=== PATIENT | female | born 1970 | race Caucasian/White ===

== ENCOUNTER 2017-03-05 22:03 | Emergency (ER) | payer MEDICAID ==
[2017-03-05] MEDS ORDERED: Aspirin Low Dose CHEW TAB* 81 MG PO ONE (23:57)
--- NOTE | 2017-03-06 00:26 | ED ---
Dominic Palomo Benjamin, scribed for Cam Pereira MD on 03/05/17 at 2358 . HPI Chest Pain - HPI Summary HPI Summary: 46yo female c/o SOB since morning andpain in right ribs and right back since 1630 today. States that the pain is getting worse, and is aggravated upon deep breath and exertion. Pt had cold symptoms in the past few days, including cough with phlegm, stuffy nose. Denies fever. PMHx includes murmurs and HTN. FHx of DM , [place], and HTN - History of Current Complaint Chief Complaint: EDChestWallPain Time Seen by Provider: 03/05/17 23:48 Hx Obtained From: Patient Onset/Duration: Started Hours Ago - this morning, Still Present Timing: Constant Initial Severity: Moderate Current Severity: Moderate Pain Intensity: 6 Pain Scale Used: 0-10 Numeric Chest Pain Location: Right Anterior Chest Pain Radiates: Yes Chest Pain Radiates To:: Back - right back Character: Cough, Productive, Dyspnea at Exertion Aggravating Factor(s): Exertion, Deep Breaths - Allergy/Home Medications Allergies/Adverse Reactions: Allergies Allergy/AdvReac Type Severity Reaction Status Date / Time Iodinated Contrast Media Allergy Severe Hives Verified 03/05/17 14:22 [CONTRAST DYE] Sulfa Drugs Allergy Severe hives, sob Verified 03/05/17 14:22 Clarithromycin [From Biaxin] Allergy Intermediate Itching Verified 03/05/17 14: 22 Shellfish Allergy Allergy Unknown Hives Verified 03/05/17 14:22 Latex Allergy Rash Verified 03/05/17 14:22 NSAIDs Allergy STOMACH Verified 03/05/17 14:22 PAIN Bee Stings Allergy Difficulty Uncoded 07/15/16 18:41 Breathing ENVIRONMENTAL/SEASONAL Allergy STUFFY Uncoded 07/15/16 18:41 ALLERGIES PMH/Surg Hx/FS Hx/Imm Hx Endocrine/Hematology History: Reports: Hx Thyroid Disease - multiple thyroid nodules Cardiovascular History: Reports: Hx Hypertension - Forgets to take her meds often, Hx Valvular Heart Disease - ? STATES RELATED TO HEART MURMUR-, Other Cardiovascular Problems/Disorders - heart murmur Comment Only: Hx Pacemaker/ICD - DORSAL COLUMN STIMULATOR 2012 Respiratory History: Reports: Hx Asthma, Other Respiratory Problems/Disorders - hx pleursy and has respiratory infection today per patient it is a virus GI History: Reports: Hx Gastroesophageal Reflux Disease - ?, Other GI Disorders - Obesity History: Reports: Other Problems/Disorders - HX OF BLADDER INFECTIONS- HAS HAD 2 PROCEDURES TO STRETCH URETHRA Musculoskeletal History: Reports: Hx Arthritis - Psoriatic Arthritis, Hx Rheumatoid Arthritis, Hx Back Problems, Other Musculoskeletal History - HX OF RUFINA IN RIGHT FEMUR Sensory History: Reports: Hx Contacts or Glasses - GLASSES Denies: Hx Hearing Aid Opthamlomology History: Reports: Hx Contacts or Glasses - GLASSES Neurological History: Reports: Hx Migraine Psychiatric History: Reports: Hx Depression - ON MEDS Denies: Hx Panic Disorder - Cancer History Hx Chemotherapy: No Hx Radiation Therapy: No - Surgical History Surgery Procedure, Year, and Place: Dorsal Column Stimulator. cervical fusion. femur rodding Hx Anesthesia Reactions: No Infectious Disease History: Denies: Hx Clostridium Difficile, Hx Hepatitis, Hx Human Immunodeficiency Virus (HIV), Hx Shingles, Hx Tuberculosis, History Other Infectious Disease, Traveled Outside the [place] in Last 30 Days - Family History Known Family History: Positive: Unknown, Hypertension, Diabetes - Social History Occupation: Employed Full-time Lives: With Family Alcohol Use: None Substance Use Type: Reports: None Substance Use Comment - Amount & Last Used: oxycodone, oxycontin Smoking Status (MU): Never Smoked Tobacco Have You Smoked in the Last Year: No Review of Systems Constitutional: Negative Negative: Fever Eyes: Negative ENT: Negative Positive: Chest Pain Positive: Shortness Of Breath, Cough Gastrointestinal: Negative Genitourinary: Negative Musculoskeletal: Negative Skin: Negative Neurological: Negative Psychological: Normal All Other Systems Reviewed And Are Negative: Yes Physical Exam Triage Information Reviewed: Yes Vital Signs On Initial Exam: Initial Vitals Temp Pulse Resp BP Pulse Ox 96.1 F 107 18 141/88 100 03/05/17 22:05 03/05/17 22:05 03/05/17 22:05 03/05/17 22:05 03/05/17 22:05 Vital Signs Reviewed: Yes Appearance: Positive: Well-Appearing, No Pain Distress Skin: Positive: Warm Head/Face: Positive: Normal Head/Face Inspection Eyes: Positive: SWETHA ENT: Positive: Hearing grossly normal Neck: Positive: Supple Respiratory/Lung Sounds: Positive: Clear to Auscultation, Breath Sounds Present Cardiovascular: Positive: RRR Abdomen Description: Positive: Nontender, Soft Bowel Sounds: Positive: Present Musculoskeletal: Positive: Strength/ROM Intact Neurological: Positive: Alert, Oriented to Person Place, Time Psychiatric: Positive: Affect/Mood Appropriate Diagnostics - Vital Signs Vital Signs Temp Pulse Resp BP Pulse Ox 03/05/17 22:05 96.1 F 107 18 141/88 100 - Laboratory Result Diagrams: 03/06/17 00:40 03/06/17 00:40 Lab Statement: Any lab studies that have been ordered have been reviewed, and results considered in the medical decision making process. - EKG 0028. Cardiac Rate: NL - 80bpm EKG Rhythm: Sinus Rhythm ST Segment: Normal Ectopy: None Re-Evaluation - Re-Evaluation First Eval Change: Improved Chest Pain Course/Dx - Diagnoses Provider Diagnoses: Pleurisy Discharge - Discharge Plan Condition: Stable Disposition: HOME Patient Education Materials: Pleurisy (ED) Referrals: Marino Cheung MD [Primary Care Provider] - The documentation as recorded by the Dominic rios Benjamin accurately reflects the service I personally performed and the decisions made by me, Cam Pereira MD.
[2017-03-06 00:49] LABS: Hematocrit 35 % (35-47); Hemoglobin 11.3 g/dl (12.0-16.0); Mean Corpuscular HGB Conc 32 g/dl (31-36); Mean Corpuscular Hemoglobin 24 pg (27-31); Mean Platelet Volume 9 um3 (7.4-10.4); Red Blood Count 4.68 10^6/ul (4.0-5.4); Red Cell Distribution Width 17 % (10.5-15); White Blood Count 8.6 10^3/ul (3.5-10.8)
[2017-03-06 00:53] LABS: Comments Flag Yes; Mean Corpuscular Volume 74 fL (80-97)
[2017-03-06 01:06] LABS: Albumin 3.9 g/dL (3.2-5.2); EGFR African American 162.6 (>60); EGFR Non-African American 126.4 (>60); Globulin 3.2 g/dL (2-4); Potassium 3.6 mmol/L (3.5-5.0); Total Bilirubin 0.4 mg/dL (0.2-1.0); Total Protein 7.1 g/dL (6.4-8.9)
[2017-03-06] MEDS ORDERED: Ketorolac INJ* 30 MG/ML 1 ML VIAL IV PUSH ONE (01:13)
[2017-03-06 03:03] VITALS: BP 116/73
--- NOTE | 2017-03-06 07:38 | RAD ---
INDICATION: Chest pain COMPARISON: Chest x-ray dated November 15, 2015 TECHNIQUE: PA and lateral views of the chest were obtained. FINDINGS: Stable postoperative findings include a plate and screw fixator overlying the lower cervical spine. At the midline mediastinum there is what appears to be an intrathecal neurostimulator. The heart and mediastinum are normal in size and contour. The lungs are grossly clear. There is no evidence of large pleural effusion. Visualized bones are normal for the patient's age. There is no radiographic evidence of free air beneath the diaphragm IMPRESSION: No radiographic evidence of acute cardiopulmonary disease.
== END 2017-03-06 02:00 | disposition home or self-care (01) ==
LOC: ED 22:03
DX: R09.1 Pleurisy (principal); R05 Cough; M54.9 Dorsalgia, unspecified; Z86.79 Personal history of other diseases of the circulatory system
CPT/HCPCS: 36415; 71020; 80053; 83605; 84484; 85025; 85379; 93005; 96374; 99283; A9270-GY

== ENCOUNTER 2017-04-23 10:32 | Observation (INO) | payer OTHER ==
[~2017-04-23 10:32] MED LIST: Buffered Lidocaine 0.9% SYRIN* 5 ML/SYR SYRINGE INTRADERM ONE; Buffered Lidocaine 0.9% SYRIN* 5 ML/SYR SYRINGE ONE
[2017-04-23] MEDS ORDERED: fentaNYL* 50 MCG/ML 2 ML VIAL (100 MCG VIAL) ONE ×4 (11:52→17:01)
[2017-04-23] MEDS ORDERED: Midazolam* 1 MG/ML 2 ML VIAL (2 MG) ONE ×2 (11:53→13:35)
[2017-04-23] MEDS ORDERED: Cisatracurium* 2 MG/ML MDV 5 ML ONE (13:17)
[2017-04-23] MEDS ORDERED: Dexamethasone IV* 4 MG/ML 1 ML (4 MG) ONE (13:43)
[2017-04-23] MEDS ORDERED: Lidocaine 2% PF * 5 ML VIAL ONE (13:43)
[2017-04-23] MEDS ORDERED: Ondansetron INJ* 2 MG/ML VIAL ONE (13:43)
[2017-04-23] MEDS ORDERED: Propofol* 10 MG/ML 20 ML BTL IV PUSH ONE (13:43)
[2017-04-23] MEDS ORDERED: Succinylcholine* 20 MG/ML 10 ML VIAL ONE (13:43)
[2017-04-23] MEDS ORDERED: Acetaminophen TAB* 325 MG PO PRN (14:09)
[2017-04-23] MEDS ORDERED: Metoclopramide IV* 5 MG/ML 2 ML VIAL IV PRN (14:09)
[2017-04-23] MEDS ORDERED: Scopolamine 1.5 mg* PATCH TRANSDERM PRN (14:09)
[2017-04-23] MEDS ORDERED: Sevoflurane* 1 BTL ONE (14:18)
[2017-04-23] MEDS ORDERED: Scopolamine 1.5 mg* PATCH ONE (15:47)
[2017-04-23] MEDS ORDERED: HYDROmorphone* 1 MG/ML 1 ML SYR ONE ×2 (15:47→17:01)
[2017-04-23] MEDS ORDERED: Metoclopramide IV* 5 MG/ML 2 ML VIAL ONE (15:48)
[2017-04-23] MEDS: HYDROmorphone* 1 MG/ML 1 ML SYR IV PRN ×5 (15:51→16:44)
[2017-04-23] MEDS: fentaNYL* 50 MCG/ML 2 ML VIAL (100 MCG VIAL) IV PRN ×5 (16:05→17:02)
[2017-04-23] MEDS ORDERED: HYDROmorphone* 1 MG/ML 1 ML SYR IV SLOW PU PRN (18:04)
[2017-04-23] MEDS ORDERED: Albuterol HFA INHALER* 8 gm MDI INH PRN (18:06)
[2017-04-23] MEDS ORDERED: Albuterol 2.5 MG/3 ML NEB.SOL* (0.083%) INH PRN (18:06)
[2017-04-23] MEDS ORDERED: Cyclobenzaprine TAB* 10 MG PO PRN (18:06)
[2017-04-23] MEDS ORDERED: oxyCODONE TAB* 5 MG TAB PO PRN (18:06)
[2017-04-23] MEDS ORDERED: Acetaminophen ADULT LIQ* 650 MG/20.3 ML UDC PO PRN (19:05)
[2017-04-23] MEDS ORDERED: Ondansetron ODT TAB* 4 MG PO PRN (19:06)
[2017-04-23] MEDS ORDERED: oxyCODONE ORAL.SOLN* 5 MG/5 ML UDC PO PRN (19:06)
[2017-04-23] MEDS ORDERED: Ondansetron INJ* 2 MG/ML VIAL IM PRN (19:07)
[2017-04-23] MEDS ORDERED: Ondansetron INJ* 2 MG/ML VIAL IV PRN (19:07)
[2017-04-23] MEDS ORDERED: EPINEPHrine AMP 1 MG/ML IM PRN (19:13)
[2017-04-23] MEDS ORDERED: NAPROXEN 220 MG PO PRN (19:14)
[2017-04-23] MEDS ORDERED: Diclofenac 1.3% PATCH (NF) 5 PATCHS TRANSDERM PRN (19:14)
[2017-04-23] MEDS ORDERED: Diclofenac 1% GEL (NF) 100 GM TUBE TOPICAL PRN (19:16)
[2017-04-23] MEDS: oxyCODONE ORAL.SOLN* 5 MG/5 ML UDC PO PRN ×2 (19:27→23:38)
[2017-04-23] MEDS: Gabapentin CAP(*) 300 MG PO SCH (20:42)
[2017-04-23] MEDS: oxyCODONE SR TAB(*) 10 MG TAB.SR PO SCH (20:43)
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
[2017-04-23] MEDS ORDERED: Mometasone 220 MCG MDI INH SCH (21:00)
[2017-04-23] MEDS ORDERED: Mometasone/Formoter 200/5 MDI INH SCH (21:00)
[2017-04-24] MEDS: oxyCODONE ORAL.SOLN* 5 MG/5 ML UDC PO PRN ×2 (04:15→08:39)
--- NOTE | 2017-04-24 06:44 | OP ---
DATE OF OPERATION: 04/23/17 - ROOM #351 DATE OF : 68. SURGEON: Milton Mosley MD. STATION SUPERINTENDENT: Dr. Arun Molina. ANESTHESIOLOGIST: Carol Reyna MD ANESTHESIA: General PRE-OP DIAGNOSES: Hyperthyroidism and toxic multinodular goiter. POST-OP DIAGNOSES: Hyperthyroidism and toxic multinodular goiter. OPERATIVE PROCEDURE: Right thyroid lobectomy. ESTIMATED BLOOD LOSS: Less than 30 mL. SPECIMENS: Right thyroid lobe to pathology. INDICATION: This is a 46-year-old woman who has had longstanding subclinical hyperthyroidism. Radioactive iodine uptake study showed multinodular goiter with what appeared to be multiple hyperfunctioning nodules in the right lobe. The decision was made following consultation with her interpretative dancer to perform a right thyroid lobectomy in hopes of rendering her euthyroid. DESCRIPTION OF PROCEDURE: On 04/23/17, the patient was brought to the operating room, general anesthesia was induced. Initial attempts to place a #7 NIM's endotracheal tube were unsuccessful. A #7 non-NIM's endotracheal tube was then placed. Attempts were made to change to a NIM's tube over a tube changer, but those were also unsuccessful and so a size 6 NIM's endotracheal tube was ultimately selected and was used for successful intubation. Once intubated, the patient was positioned. Care was taken to assess a comfortable position for her before she was sedated because she has history of back problems. She was placed with just gentle neck extension for the procedure. She was prepped with Betadine and draped in sterile fashion. A time -out was performed approximately 8 cc of 1.5% lidocaine with 1:200,000 epinephrine was infiltrated into the anterior neck, skin and subcutaneous tissue. Once adequate time had been allotted for vasoconstriction, the procedure was begun. A #15 blade was used to make a 6-cm incision low in the anterior neck. Dissection was undertaken through the subcutaneous fat and through the platysma utilizing a Bovie cautery. Superior and inferior subplatysmal flaps were raised to facilitate exposure to the strap muscles. Strap muscles were then divided along the median raphe and the strap muscles were reflected off the right side of the thyroid to expose the right thyroid lobe. There was some scarring with some adhesion of strap musculature to the anterior and lateral portions of the right lobe of the thyroid presumably from the patient's prior right-sided approach for ACDF surgery several years ago. Attention was turned towards the superior pole. The superior pole vascular pedicle was identified. Multiple vessels were ligated with hemoclips and then divided with the LigaSure device. With the superior pole freed, attention was then turned inferiorly. The inferior pole vascular pedicle was identified and ligated close to the gland as was possible. In the context of this, 1 parathyroid was seen and preserved with its blood supply intact. Dissection was then undertaken in the tracheoesophageal groove. The recurrent laryngeal nerve was found without difficulty. Its identify was confirmed both visually and with stimulation on the NIM's device. This was used as a guide for further superior dissection. The gland was then reflected laterally. The middle thyroid vein was ligated with hemoclips and divided. Hemoclips were used from [id number] to ligate small vascular feeders as the gland was reflected medially. With the gland mobilized and the nerve traced to its insertion point in the larynx, the isthmus was then divided with the LigaSure device. At this point, the specimen was removed, the wound was inspected. It was irrigated with saline. Multiple Valsalvas were performed to assure good hemostasis. A small piece of Surgicel was then placed into the operative bed. The strap muscles were reapproximated with 4-0 Polysorb. Platysma was also reapproximated with 4-0 Polysorb and skin was closed with 5-0 nylon. Final layer of Steri-Strips and Mastisol was placed. The patient was then extubated without difficulty and delivered to the PACU in stable condition. [id number]/[facility] #: [id number] NEERAJ
[2017-04-24] MEDS ORDERED: Omeprazole CAP* 20 MG PO SCH (07:30)
[2017-04-24 08:02] VITALS: BP 131/52
[2017-04-24] MEDS: Gabapentin CAP(*) 300 MG PO SCH (08:38)
[2017-04-24] MEDS: oxyCODONE SR TAB(*) 10 MG TAB.SR PO SCH (08:41)
[2017-04-24] MEDS ORDERED: Valsartan TAB* 40 MG PO SCH (09:00)
[2017-04-24] MEDS ORDERED: Montelukast Sodium TAB* 10 MG PO SCH (09:00)
[2017-04-24] MEDS ORDERED: DULoxetine DR CAP* 30 MG CAP.DR PO SCH (09:00)
--- NOTE | 2017-04-24 11:05 | DS ---
CC: Dr. Cheung; Dr. Mosley; Dr. Noe * DATE OF ADMISSION: 04/23/2017. DATE OF DISCHARGE: 04/24/2017. PRIMARY CARE PHYSICIAN: Dr. Cheung. ENT: Dr. Mosley. SALES SUPPORT ADMINISTRATOR: Dr. Noe. PRIMARY DIAGNOSIS: Hyperthyroidism and toxic multinodular goiter, status post right thyroid lobectomy, 04/23/2017. SECONDARY DIAGNOSES: 1. Psoriatic arthritis. 2. Chronic pain. 3. Hypertension. 4. Asthma. 5. Migraines. 6. Obesity. 7. Suspected sleep apnea. MEDICATIONS ON DISCHARGE: Unchanged from admission, include: 1. Oxycodone 10 mg every 4 hours as needed for pain. 2. Oxycodone SR 40 mg twice daily, no refills were given. 3. Diovan 120 mg in the morning. 4. Omeprazole one tab in the morning. 5. Naproxen one tab twice daily as needed. 6. Singulair 10 mg in the morning. 7. Gabapentin 300 mg three times a day. 8. Fluticasone 250 mcg one puff twice daily. 9. Epinephrine 0.3 mg IM as needed for anaphylaxis. 10. Cymbalta 60 mg daily. 11. Flector apply topically twice daily as needed. 12. Diclofenac 1% gel one application topically 4 times a day as needed to the area of pain. 13. Flexeril 10 mg three times a day as needed. 14. Albuterol HFA two puffs inhaled 4 times a day as needed for shortness of breath or wheeze. 15. Albuterol nebulizer four times a day as needed for shortness of breath or wheeze. HISTORY OF PRESENT ILLNESS AND HOSPITAL COURSE: This is a 46-year-old female with a history of hyperthyroidism and toxic multinodular goiter who underwent a right thyroid lobectomy with Dr. Mosley on 04/23/2017. Status post procedure and in the setting of her chronic pain, her postoperative pain was difficult to control and the Hospitalist Service was consulted for admission. There was concern about sending the patient home with increased pain medications for control given her obesity and some concern for obstructive sleep apnea, although this is undiagnosed. She was admitted to the hospital, continued on her home medications, as well as her home pain regimen with breakthrough Dilaudid. However, after admission to the hospital, she required zero doses of breakthrough Dilaudid. When seen in the morning after the surgery, she felt her pain was back to baseline, well controlled and she felt comfortable leaving the hospital without changes to her home medications. There were no complications of this patient's hospital stay. AT FOLLOW-UP, PLEASE: 1. Please evaluate for continued pain control. 2. Please evaluate for incisional site integrity. 3. Other labs and follow-up as indicated status post procedure as directed by ENT. REASON TO RETURN TO THE HOSPITAL: Including, but not limited to recurrent or worsening symptoms including worsening pain, redness, erythema around the surgical site, fevers, nausea, vomiting, lightheadedness, loss of consciousness , chest pain, shortness of breath, inability to obtain or tolerate medications were discussed with the patient. She acknowledged understanding. Greater than 30 minutes were spent in the discharge of this patient, greater than half was spent [id number] with the patient. [id number]/[facility] #: [id number] MTDD
[2017-04-26] MEDS ORDERED: Scopolomine PATCH Remove* 1 NOTE MISC PATCH OFF ONE (15:00)
== END 2017-04-24 12:20 | disposition home or self-care (01) ==
LOC: OR 10:32 → SSU 18:05
PROVIDERS: ADMIT Internal Medicine; ATTEND Internal Medicine
DX: E05.20 Thyrotoxicosis with toxic multinodular goiter without thyrotoxic crisis or storm (principal); L40.50 Arthropathic psoriasis, unspecified; G89.29 Other chronic pain; I10 Essential (primary) hypertension; J45.909 Unspecified asthma, uncomplicated; G43.909 Migraine, unspecified, not intractable, without status migrainosus; E66.9 Obesity, unspecified; Z79.899 Other long term (current) drug therapy; F41.8 Other specified anxiety disorders; K21.9 Gastro-esophageal reflux disease without esophagitis
CPT/HCPCS: 81025; 88307; A9270-GY; G0378; J0171; J0330; J1100; J1170; J2250; J2405; J2704; J2765; J3010

== ENCOUNTER 2017-10-30 09:12 | Day surgery (SDC) | payer OTHER ==
[~2017-10-30 09:12] MED LIST changes: +Famotidine IV* 10 MG/ML 2 ML (20 mg) IV ONE; +Famotidine IV* 10 MG/ML 2 ML (20 mg) ONE; +Naloxone* 0.4 MG/ML 1 ML VIAL IV PRN; +Ondansetron INJ* 2 MG/ML VIAL IV PRN; +fentaNYL* 50 MCG/ML 2 ML VIAL (100 MCG VIAL) IV PRN; +oxyCODONE/Acetamin 5/325 MG* TAB PO PRN
[2017-10-30] MEDS ORDERED: ceFAZolin 2 GM PREMIX (*) 2 GM/50 ML BAG IVPB ONE (09:29)
[2017-10-30] MEDS ORDERED: Midazolam* 1 MG/ML 2 ML VIAL (2 MG) ONE (09:53)
[2017-10-30] MEDS ORDERED: Lidocaine 2% PF * 5 ML VIAL ONE (09:53)
[2017-10-30] MEDS ORDERED: KETAMINE HCL* 50 MG/ML 10 ML VIAL ONE (09:53)
[2017-10-30] MEDS ORDERED: fentaNYL* 50 MCG/ML 2 ML VIAL (100 MCG VIAL) ONE (09:53)
[2017-10-30] MEDS ORDERED: Dexamethasone IV* 4 MG/ML 1 ML (4 MG) ONE (09:53)
[2017-10-30] MEDS ORDERED: Propofol* 10 MG/ML 20 ML BTL IV PUSH ONE (09:53)
[2017-10-30] MEDS ORDERED: Ondansetron INJ* 2 MG/ML VIAL ONE (09:53)
[2017-10-30] MEDS ORDERED: Bupivacaine 0.25% SDV* 30 ML ONE (10:25)
[2017-10-30] MEDS ORDERED: oxyCODONE/Acetamin 5/325 MG* TAB ONE (13:52)
[2017-10-30 14:44] VITALS: BP 124/52
--- NOTE | 2017-10-31 14:59 | RAD ---
INDICATION: Osteoarthritis COMPARISONS: November 11, 2016 TECHNIQUE: Fluoroscopy was provided for a surgical procedure. Total fluoroscopy time is: 21 seconds FINDINGS: Spot images demonstrate needles within the scaphoid-trapezium and first CMC joints. IMPRESSION: FLUOROSCOPY WAS PROVIDED FOR A SURGICAL PROCEDURE CPT II Codes: 6045F
== END 2017-10-30 14:45 | disposition home or self-care (01) ==
LOC: OREAST 09:12
PROVIDERS: ATTEND Plastic Surgery
DX: M18.12 Unilateral primary osteoarthritis of first carpometacarpal joint, left hand (principal); J45.909 Unspecified asthma, uncomplicated; F41.8 Other specified anxiety disorders; L40.50 Arthropathic psoriasis, unspecified; I10 Essential (primary) hypertension
CPT/HCPCS: 76000; 81025; 88304; 88311; A9270-GY; J0690; J1100; J2250; J2405; J2704; J3010

== ENCOUNTER 2017-11-04 20:02 | Emergency (ER) | payer OTHER ==
[2017-11-04 20:28] VITALS: BP 123/71
--- NOTE | 2017-11-04 20:36 | UC ---
Skin Complaint HPI - History of Current Complaint Chief Complaint: UCUpperExtremity Time Seen by Provider: 11/04/17 20:36 Stated Complaint: HAND COMPLAINT Hx Last Menstrual Period: 10/30/16 Pain Intensity: 5 - Allergy/Home Medications Allergies/Adverse Reactions: Allergies Allergy/AdvReac Type Severity Reaction Status Date / Time MS Iodinated Contrast Media Allergy Severe Hives Verified 11/04/17 20:19 [CONTRAST DYE] MS Sulfa Drugs [Sulfa Drugs] Allergy Severe hives, sob Verified 11/04/17 20:19 MS Clarithromycin Allergy Intermediate Itching Verified 11/04/17 20:19 [From Biaxin] MS NSAIDs [NSAIDs] Allergy Intermediate STOMACH Verified 11/04/17 20:19 PAIN MS Latex [Latex] Allergy Mild Rash Verified 11/04/17 20:19 MS Shellfish Allergy Allergy Mild Hives Verified 11/04/17 20:19 [Shellfish Allergy] ENVIRONMENTAL/SEASONAL Allergy Intermediate STUFFY Uncoded 11/04/17 20:19 ALLERGIES Bee Stings Allergy Mild Difficulty Uncoded 11/04/17 20:19 Breathing PMH/Surg Hx/FS Hx/Imm Hx - Surgical History Surgical History: Yes Surgery Procedure, Year, and Place: BILATERAL EYE MUSCULE CORRECTION- 1969 AND 2000- [facility] [place]. SPINAL FUSION L5-S1- 2000- [place]. CERVICAL FUSION C2-C3 (FROM BONE SPUR) [facility] [place]. REMOVAL OF SEWING NEEDLE RIGHT INDEX FINGER- [facility] [place]. DORSAL COLUMN STIMULATOR- 2012- [facility] [place]. 04/2017 PARTIAL THYROIDECTOMY [facility] - Family History Known Family History: Positive: Unknown, Hypertension, Diabetes - Social History Alcohol Use: None Substance Use Type: None Substance Use Comment - Amount & Last Used: oxycodone, oxycontin Smoking Status (MU): Never Smoked Tobacco Have You Smoked in the Last Year: No - Immunization History Most Recent Tetanus Shot: about 5 years ago Physical Exam Vital Signs: Initial Vital Signs Temp 96.9 F 11/04/17 20:21 Pulse 113 11/04/17 20:21 Resp 18 11/04/17 20:21 BP 123/71 11/04/17 20:21 Pulse Ox 97 11/04/17 20:21 Discharge - Discharge Plan Referrals: Marino Cheung MD [Primary Care Provider] -
[2017-11-04] MEDS ORDERED: Cephalexin CAP* 500 MG PO ONE (21:21)
--- NOTE | 2017-11-04 21:32 | UC ---
Skin Complaint HPI - HPI Summary HPI Summary: PT UNDERWENT LEFT WRIST ARTHOPLASTY 10/30/[address] HOOVER. ABOUT 2 HRS LOGGER ALL ROUND WHILE PT WAS WALKING THROUGH THE MALL SHE SUDDENLY DEVELOPED CHILLS AND PROFUSE SWEATS. STATES ONE OF HER SURGICAL INCISIONS LOOKS MORE RED THAN BEFORE AND IS SWOLLEN AND MORE PAINFUL. NO DRAINAGE. DENIES SOB. - History of Current Complaint Chief Complaint: UCUpperExtremity Time Seen by Provider: 11/04/17 20:36 Stated Complaint: HAND COMPLAINT Hx Obtained From: Patient Hx Last Menstrual Period: 10/30/16 Onset/Duration: Sudden Onset, Lasting Hours, Still Present Timing: Constant Onset Severity: Moderate Current Severity: Moderate Pain Intensity: 5 Pain Scale Used: 0-10 Numeric Location: Hand (Left) Character: Swelling, Pain, Redness Aggravating Factor(s): Touch Alleviating Factor(s): Nothing Associated Signs & Symptoms: Positive: Chills, Tenderness, Joint Swelling - Allergy/Home Medications Allergies/Adverse Reactions: Allergies Allergy/AdvReac Type Severity Reaction Status Date / Time clarithromycin Allergy Itching Verified 11/04/17 21:13 Iodinated Contrast- Oral and Allergy Hives Verified 11/04/17 21:13 IV Dye latex Allergy Rash Verified 11/04/17 21:13 NSAIDS (Non-Steroidal Allergy See Comment Verified 11/04/17 21:13 Anti-Inflamma shellfish derived Allergy Hives Verified 11/04/17 21:13 Sulfa (Sulfonamide Allergy Hives/Diff. Verified 11/04/17 21:13 Antibiotics) Breathing/I tching ENVIRONMENTAL/SEASONAL Allergy Intermediate STUFFY Uncoded 11/04/17 20:19 ALLERGIES Bee Sting Allergy Difficulty Uncoded 11/04/17 21:13 Breathing Review of Systems Constitutional: Chills, Other - SWEATS Skin: Other - INCISION SITE ERYTHEMA Respiratory: Negative Cardiovascular: Negative Gastrointestinal: Negative Musculoskeletal: Arthralgia, Decreased ROM, Edema All Other Systems Reviewed And Are Negative: Yes PMH/Surg Hx/FS Hx/Imm Hx Endocrine History: Hypothyroidism Cardiovascular History: Hypertension Respiratory History: Asthma - Surgical History Surgical History: Yes Surgery Procedure, Year, and Place: BILATERAL EYE MUSCULE CORRECTION- 1969 AND 2000- [facility] – [place]. SPINAL FUSION L5-S1- 2000- [facility]. CERVICAL FUSION C2-C3 (FROM BONE SPUR) [facility] [place]. REMOVAL OF SEWING NEEDLE RIGHT INDEX FINGER- [facility] [place]. DORSAL COLUMN STIMULATOR- 2012- [facility] [place]. 04/2017 PARTIAL THYROIDECTOMY [facility] - Family History Known Family History: Positive: Hypertension, Diabetes - Social History Alcohol Use: None Substance Use Type: None Substance Use Comment - Amount & Last Used: oxycodone, oxycontin Smoking Status (MU): Never Smoked Tobacco Have You Smoked in the Last Year: No - Immunization History Most Recent Tetanus Shot: about 5 years ago Physical Exam Triage Information Reviewed: Yes Appearance: Well-Appearing, No Pain Distress, Well-Nourished Vital Signs: Initial Vital Signs Temp 96.9 F 11/04/17 20:21 Pulse 113 11/04/17 20:21 Resp 18 11/04/17 20:21 BP 123/71 11/04/17 20:21 Pulse Ox 97 11/04/17 20:21 Vital Signs Reviewed: Yes Eyes: Positive: Conjunctiva Clear ENT: Positive: Hearing grossly normal Neck: Positive: Supple Respiratory: Positive: No respiratory distress, No accessory muscle use Cardiovascular: Positive: Pulses Normal Abdomen Description: Positive: Soft Musculoskeletal: Positive: ROM Limited @ - LEFT WRIST, Edema @ - LEFT WRIST AND THENAR ASPECT OF LEFT HAND Neurological: Positive: Alert Psychological: Positive: Age Appropriate Behavior Skin: Positive: Other - INCISION SITE LEFT THUMB INTACT WITH SOME SURROUNDING ERYTHEMA AND WARMTH. TTP. NO DRAINAGE. Course/Dx - Diagnoses Provider Diagnoses: SURGICAL SITE INFECTION Discharge - Discharge Plan Condition: Stable Disposition: HOME Prescriptions: Cephalexin CAP* [Keflex 500 CAP*] 1,000 mg PO BID #18 cap Patient Education Materials: Surgical Site Infections (ED) Referrals: Marino Cheung MD [Primary Care Provider] - If Needed Additional Instructions: TAKE THE KEFLEX TWICE DAILY TO COVER FOR INFECTION. CHANGE BANDAGE DAILY AND NEEDED IF IT BECOMES SOILED OR WET. SEEK FOLLOW-UP IF YOU DEVELOP FURTHER SPREADING REDNESS OF THE SKIN, PURULENT DRAINAGE, FEVER, INCREASED PAIN OR ANY OTHER CONCERNING SYMPTOMS. KEEP YOUR APPT WITH DR. HOOVER NEXT FRIDAY.
== END 2017-11-04 21:30 | disposition home or self-care (01) ==
LOC: UCEAST 20:02
DX: T81.4XXA Infection following a procedure, initial encounter (principal); B99.9 Unspecified infectious disease; Z96.632 Presence of left artificial wrist joint; I10 Essential (primary) hypertension
CPT/HCPCS: 99212; A9270-GY; G0463

== ENCOUNTER 2019-09-03 17:44 | Emergency (ER) | payer OTHER ==
--- OUTSIDE RECORDS SUMMARY | 2019-09-03 17:49 | XMS REPORT | Continuity of Care Document ---
:1970 External Reference #:[id number] Author Name Marino Cheung MD Address [address] [place] [address] Problems Active Problems Provider Date Morbid obesity Onset: 08/28/2018 Hoarse Onset: 08/31/2017 Social History Type Date Description Comments Sex Unknown Allergies, Adverse Reactions, Alerts Active Allergies Reaction Severity Comments Date Biaxin rash and itching 05/21/2019 Iodine Contrast Media No Reaction Indicated 05/21/2019 Sulfa No Reaction Indicated 05/21/2019 Bee Stings 08/17/2019 Shellfish-Derived Products 08/17/2019 Medications Active Medications SIG Qnty Indications Ordering Date Provider Levothyroxine Sodium One daily 90tabs Marino Cheung MD 05/29/2019 150mcg Tablets Losartan Potassium 1 tab by mouth 90tabs Marino Cheung MD 05/28/2019 100mg every day Tablets Triamcinolone nancy twice each 30units Unknown 09/17/2018 Acetonide day External 0.025% Ointment Ferrous Gluconate 1 twice each 60tabs Unknown 08/31/2018 day Oral 324(37.5Fe) mg Tablets Miralax once each day 1units Unknown 08/28/2018 3350NF Powder Oral Omeprazole Oral; Take One 90caps Unknown 08/28/2018 20mg Capsules Capsule By Mouth DR Every Day Proair HFA 2 Inhalation; 17units Unknown 08/28/2018 108(90Base) 2 Puffs Q4-6 mcg/Act Aerosol Hours prn Cough Or Shortness Of Breath Cyclobenzaprine HCL Oral; Take One 60tabs Unknown 08/17/2018 10mg Tablet By Mouth Tablets Three Times A Day as Needed Duloxetine HCL Take Two 60caps Marino Cheung MD 05/08/2018 60mg Caps Capsules By DR Stephens Mouth Every Day Epipen 2-Dmitry 1 once prn 1units Unknown 03/25/2017 0.3mg/0.3ML Injection Solution Auto-Inject Diclofenac Sodium Transdermal; 100units Unknown 02/11/2017 3% Gel Apply Topically To Affected Area(S) Twice Daily Pocket Spacer 1 as needed N/A 1units Unknown 12/07/2015 Device Gabapentin 1 three times Unknown 10/12/2015 300mg Capsules each day Oral Oxycodone HCL 1 every 4 hours 40tabs Unknown 10/12/2015 10mg prn Oral Tablets Medications Administered in Office Medication SIG Qnty Indications Ordering Provider Date Injection Triamcinolone Acetonide Unknown 12/29/2015 Per 10 MG Injection Inject/Drain Arthrocentesis Unknown 12/29/2015 Intermediate Joint/Bursa Injection TB Intradermal Test Unknown 03/26/2011 Injection Immunizations CPT Code Status Date Vaccine Lot # [id number] Given 05/28/2019 Flu < 65 years [id number] 21079 Given 08/28/2018 Influenza Virus Vaccine, Quadrivalent, Split Virus, Im Use 0.5ML 05408 Given 08/28/2018 Flu < 65 years 02980 Given 08/28/2018 Influenza Virus Vaccine, Quadrivalent, Split, Preservative Free 15371 Given 08/28/2018 Flumist 81892 Given 08/28/2018 Flu High Dose 47292 Given 08/28/2018 Influenza Virus Vaccine, Split, Preserv Free, Intradermal Use 72641 Given 11/21/2016 Influenza Virus Vaccine, Quadrivalent, Split Virus, Im Use 0.5ML 94863 Given 11/21/2016 Flu < 65 years 60150 Given 11/21/2016 Influenza Virus Vaccine, Quadrivalent, Split, Preservative Free 58952 Given 11/21/2016 Flumist 84083 Given 11/21/2016 Flu High Dose 48010 Given 11/21/2016 Influenza Virus Vaccine, Split, Preserv Free, Intradermal Use 67771 Given 10/12/2015 Flu High Dose 49123 Given 10/12/2015 Flumist 82445 Given 10/12/2015 Influenza Virus Vaccine, Quadrivalent, Split, Preservative Free 86702 Given 10/12/2015 Flu < 65 years 22833 Given 10/12/2015 Influenza Virus Vaccine, Quadrivalent, Split, Im Use 0.25ML 05717 Given 10/12/2015 Influenza Virus Vaccine, Quadrivalent, Split, Im Use 0.25ML 94653 Given 10/12/2015 Influenza Virus Vaccine, Quadrivalent, Split, Im Use 0.25ML 05606 Given 07/05/2013 Influenza Virus Vaccine, Quadrivalent, Split, Im Use 0.25ML 04866 Given 07/05/2013 Influenza Virus Vaccine, Quadrivalent, Split, Im Use 0.25ML 39911 Given 07/05/2013 Influenza Virus Vaccine, Quadrivalent, Split, Im Use 0.25ML 58229 Given 07/05/2013 Flu < 65 years 52404 Given 07/05/2013 Influenza Virus Vaccine, Quadrivalent, Split, Preservative Free 31961 Given 07/05/2013 Flumist 37847 Given 07/05/2013 Flu High Dose 90720 Given 07/05/2013 Influenza Virus Vaccine Split Virus Intramuscular Use 0.5ML 82155 Given 02/18/2013 Tdap - Boostrix/Adacel 24094 Given 02/18/2013 Tdap - Boostrix/Adacel 87016 Given 02/18/2013 Tdap - Boostrix/Adacel 36146 Given 10/13/2012 Influenza Virus Vaccine, Quadrivalent, Split, Im Use 0.25ML 41812 Given 10/13/2012 Influenza Virus Vaccine, Quadrivalent, Split, Im Use 0.25ML 67362 Given 10/13/2012 Influenza Virus Vaccine, Quadrivalent, Split, Im Use 0.25ML 49394 Given 10/13/2012 Flu < 65 years 72228 Given 10/13/2012 Flu < 65 years 36508 Given 10/13/2012 Influenza Virus Vaccine, Quadrivalent, Split, Preservative Free 33247 Given 10/13/2012 Flumist 32457 Given 10/13/2012 Flu High Dose 96714 Given 10/13/2012 Influenza Virus Vaccine, Split Virus, Preservative Free Im 0.5ML 68920 Given 07/16/2011 Influenza Virus Vaccine, Split Virus, Preservative Free Im 0.5ML 26392 Given 07/16/2011 Flu High Dose 64066 Given 07/16/2011 Flumist 77349 Given 07/16/2011 Influenza Virus Vaccine, Quadrivalent, Split, Preservative Free 26419 Given 07/16/2011 Flu < 65 years 29970 Given 07/16/2011 Flu < 65 years 29657 Given 07/16/2011 Influenza Virus Vaccine, Quadrivalent, Split, Im Use 0.25ML 37842 Given 07/16/2011 Influenza Virus Vaccine, Quadrivalent, Split, Im Use 0.25ML 16986 Given 07/16/2011 Influenza Virus Vaccine, Quadrivalent, Split, Im Use 0.25ML 53396 Given 07/16/2011 Pneumovax - for >=2years - PPSV23 71334 Given 07/10/2010 Tdap - Boostrix/Adacel 28537 Given 06/04/2010 Influenza Virus Vaccine, Quadrivalent, Split, Im Use 0.25ML 11560 Given 06/04/2010 Influenza Virus Vaccine Split Virus Intramuscular Use 0.5ML 72665 Given 05/09/2009 Influenza Virus Vaccine, Quadrivalent, Split, Im Use 0.25ML 62975 Given 05/09/2009 Influenza Virus Vaccine Split Virus Intramuscular Use 0.5ML 07311 Given 07/16/2007 Influenza Virus Vaccine, Quadrivalent, Split, Im Use 0.25ML 48261 Given 07/16/2007 Influenza Virus Vaccine Split Virus Intramuscular Use 0.5ML 17675 Given 09/22/2006 Influenza Virus Vaccine Split Virus Intramuscular Use 0.5ML Vital Signs Date Vital Result Comment 08/17/2019 1:51pm BP Systolic 138 mmHg BP Diastolic 78 mmHg Heart Rate 106 /min Body Temperature 97.9 F O2 % BldC Oximetry 98 % 05/28/2019 3:23pm BP Systolic 160 mmHg BP Diastolic 80 mmHg Weight 245.00 lb Heart Rate 97 /min Body Temperature 97.7 F O2 % BldC Oximetry 98 % Results Test Acquired Date Facility Test Result H/L Range Note CBC Auto 08/17/2019 [facility] White Blood 5.3 10^3/uL Normal 3.5-10.[address] [place], [place] [id number] [phone] Red Blood Count 4.99 10^6/uL High 3.70-4.87 Hemoglobin 14.3 g/dL Normal 12.0-16.0 Hematocrit 42 % Normal 35-47 Mean Corpuscular Volume 84 fL Normal 80-97 Mean Corpuscular Hemoglobin 29 pg Normal 27-31 Mean Corpuscular HGB Conc 34 g/dL Normal 31-36 Red Cell Distribution Width 15 % Normal 10-15 Platelet Count 328 10^3/uL Normal 150-450 Mean Platelet Volume 8.5 fL Normal 7.4-10.4 Abs Neutrophils 3.5 10^3/uL Normal 1.5-7.7 Abs Lymphocytes 1.1 10^3/uL Normal 1.0-4.8 Abs Monocytes 0.5 10^3/uL Normal 0-0.8 Abs Eosinophils 0.1 10^3/uL Normal 0-0.6 Abs Basophils 0.0 10^3/uL Normal 0-0.2 Abs Nucleated RBC 0.0 10^3/uL Granulocyte % 66.8 % Lymphocyte % 21.5 % Monocyte % 9.2 % Eosinophil % 1.6 % Basophil % 0.9 % Nucleated Red Blood Cells % 0.1 Laboratory 08/17/2019 [facility] TSH (Thyroid 0.12 Low 0.34- 5.60 [address]) mcIU/mL [place], [place] [id number] [phone] CFM Urine 05/28/2019 [facility] Urine, 80mg/L Microalbumin/C ( )- - Microalbumin reat R Urine, Creatinine, Random 200 mg/dl Microalb/CR Ratio 30-300 mg/g High abnormal Laboratory 05/28/2019 [facility] TSH 0.17 Low 0.34-5.60 2, 3 test finding 201 (Thyroid mcIU/[place] [address] [address]) [phone] Comp Metabolic 05/28/2019 [facility] Sodium 139 mmol/L Normal 135-[address] [place] [address] [phone] Potassium 4.1 mmol/L Normal 3.5-5.0 Chloride 104 mmol/L Normal 101-111 Co2 Carbon Dioxide 28 mmol/L Normal 22-32 Anion Gap 7 mmol/L Normal 2-11 Glucose 125 mg/dL High 70-100 Blood Urea Nitrogen 10 mg/dL Normal 6-24 Creatinine 0.58 mg/dL Normal 0.51-0.95 BUN/Creatinine Ratio 17.2 Normal 8-20 Calcium 9.0 mg/dL Normal 8.6-10.3 Total Protein 6.6 g/dL Normal 6.4-8.9 Albumin 4.3 g/dL Normal 3.2-5.2 Globulin 2.3 g/dL Normal 2-4 Albumin/Globulin Ratio 1.9 Normal 1-3 Total Bilirubin 1.00 mg/dL Normal 0.2-1.0 Alkaline Phosphatase 86 U/L Normal 34-104 Alt 12 U/L Normal 7-52 Ast 17 U/L Normal 13-39 Egfr Non- 110.5 >60 Egfr 133.7 >60 4 1 [id number] 2 [id number] 3 [id number] 4 Because ethnic data is not always readily available, this report includes an eGFR for both -Americans and non- Americans. The National Kidney Disease Education Program (NKDEP) does not endorse the use of the MDRD equation for patients that are not between the ages of 18 and 70, are , have extremes of body size, muscle mass, or nutritional status, or are non- or non-. According to the National Kidney Foundation, irrespective of diagnosis, the stage of the disease is based on the level of kidney function: Stage Description GFR(mL/min/1.73 m(2)) 1 Kidney damage with normal or decreased GFR 90 2 Kidney damage with mild decrease in GFR 60-89 3 Moderate decrease in GFR 30-59 4 Severe decrease in GFR 15-29 5 Kidney failure <15 (or dialysis) Procedures Description No Information Available Medical Devices Description No Information Available Encounters Type Date Location Provider Dx Diagnosis Office Visit 08/17/2019 2:00p [facility] James Cheung MD M54.12 Radiculopathy, cervical region M54.2 Cervicalgia L40.50 Arthropathic psoriasis, unspecified I37.0 Nonrheumatic pulmonary valve stenosis G43.009 Migraine w/o aura, not intractable, w/o status migrainosus E03.9 Hypothyroidism, unspecified Office Visit 05/28/2019 3:45p Gabriela Cheung MD I10 Essential ( primary) hypertension E03.9 Hypothyroidism, unspecified R73.09 Other abnormal glucose Z23 Encounter for immunization Assessments Date Code Description Provider 08/17/2019 M54.12 Radiculopathy, cervical region Marino Cheung MD 08/17/2019 M54.2 Cervicalgia Marino Cheung MD 08/17/2019 L40.50 Arthropathic psoriasis, unspecified Marino Cheung MD 08/17/2019 I37.0 Nonrheumatic pulmonary valve stenosis Marino Cheung MD 08/17/2019 G43.009 Migraine without aura, not intractable, without Marino Cheung MD status migrainosus 08/17/2019 E03.9 Hypothyroidism, unspecified Marino Cheung MD 05/28/2019 I10 Essential (primary) hypertension Marino Cheung MD 05/28/2019 E03.9 Hypothyroidism, unspecified Marino Cheung MD 05/28/2019 R73.09 Other abnormal glucose Marino Cheung MD 05/28/2019 Z23 Encounter for immunization Marino Cheung MD Plan of Treatment No Information Available Functional Status Description No Information Available Mental Status Description No Information Available Referrals Description No Information Available
--- NOTE | 2019-09-03 18:37 | UC ---
Shoulder Pain HPI - HPI Summary HPI Summary: 49 yo female presents with neck pain. She tells me that for the last ~10 years she has had neck pain requiring surgeries and fusion of several cervical vertebrae. She has chronic pain to her neck with some degree of numbness/ tingling in her shoulders and arms. 4 days ago she was lifting a esme litter box and felt a spasm in the left side of her neck with decreased sensation to her left collar and shoulder that followed within hours. Since that time her increased pain and decreased sensation has been continuing. She has been taking her at home pain medications as directed, but is mostly concerned with the decreased sensation today. She denies headache, dizziness, trouble speaking or swallowing, SOB, chest pain. - History of Current Complaint Stated Complaint: SHOULDER PAIN Time Seen by Provider: 09/03/19 18:36 Hx Obtained From: Patient Hx Last Menstrual Period: 10/30/16 Onset/Duration: Sudden Onset Timing: Constant Severity Initially: Moderate Severity Currently: Moderate Pain Intensity: 7 Pain Scale Used: 0-10 Numeric - Allergies/Home Medications Allergies/Adverse Reactions: Allergies Allergy/AdvReac Type Severity Reaction Status Date / Time clarithromycin Allergy Itching Verified 09/03/19 18:34 Iodinated Contrast Media Allergy Hives Verified 09/03/19 18:34 [Iodinated Contrast- Oral and IV Dye] latex Allergy Rash Verified 09/03/19 18:34 NSAIDS (Non-Steroidal Allergy See Comment Verified 09/03/19 18:34 Anti-Inflamma shellfish derived Allergy Hives Verified 09/03/19 18:34 Sulfa (Sulfonamide Allergy Hives/Diff. Verified 09/03/19 18:34 Antibiotics) Breathing/I tching ENVIRONMENTAL/SEASONAL Allergy Intermediate STUFFY Uncoded 09/03/19 18:34 ALLERGIES Bee Sting Allergy Difficulty Uncoded 09/03/19 18:34 Breathing PMH/Surg Hx/FS Hx/Imm Hx - Additional Past Medical History Additional PMH: Chronic pain Right leg fx C spine fusion Endocrine History: Hypothyroidism Cardiovascular History: Hypertension GI/ History: Gastroesophageal Reflux - Surgical History Surgical History: Yes Surgery Procedure, Year, and Place: BILATERAL EYE MUSCULE CORRECTION- 1969 AND 2000[place] [facility] [place] SPINAL FUSION L5-S1- 2000- [facility]. CERVICAL FUSION C2-C3 (FROM BONE SPUR) [facility] [place] REMOVAL OF SEWING NEEDLE RIGHT INDEX FINGER- 2012- [facility]. DORSAL COLUMN STIMULATOR- 2013- [facility]. 04/2017 PARTIAL THYROIDECTOMY [facility]. Oct 2017 - left hand arthroplasty of thumb [facility] - Family History Known Family History: Positive: Hypertension, Diabetes - Social History Alcohol Use: None Substance Use Type: None Substance Use Comment - Amount & Last Used: oxycodone, oxycontin Smoking Status (MU): Never Smoked Tobacco Have You Smoked in the Last Year: No - Immunization History Most Recent Tetanus Shot: about 5 years ago Review of Systems All Other Systems Reviewed And Are Negative: No Constitutional: Positive: Negative Skin: Positive: Negative Respiratory: Positive: Negative Cardiovascular: Positive: Negative Motor: Positive: Negative Neurovascular: Positive: Negative Musculoskeletal: Positive: Other: - Neck pain Neurological: Positive: Paresthesia Psychological: Positive: Negative Physical Exam - Summary Physical Exam Summary: GENERAL: NAD. WDWN. No pain distress. SKIN: No rashes, sores, lesions, or open wounds. CHEST: No accessory muscle use. Breathing comfortably and in no distress. CV: Pulses intact radial and ulnar. Cap refill <2seconds NECK: FROM. Supple. MSK: LEFT shoulder FROM. NTTP. Strength 5/5 including textile colorist formulator strength. No edema or obvious bony deformities. NEURO: Alert. Sensation decreased at LEFT c4-c5 compared to right --- mostly over anterior shoulder and just inferior to clavicle. PSYCH: Age appropriate behavior. Triage Information Reviewed: Yes Vital Signs: Vital Signs: Temp Pulse Resp BP Pulse Ox 98.1 F 94 18 153/100 100 09/03/19 18:35 09/03/19 18:35 09/03/19 18:35 09/03/19 18:35 09/03/19 18:35 Vital Signs: Temp Pulse Resp BP Pulse Ox 98.1 F 94 18 145/81 100 09/03/19 18:35 09/03/19 18:35 09/03/19 18:35 09/03/19 20:21 09/03/19 18:35 Vital Signs Reviewed: Yes Diagnostics - Radiology Cervical spine CT Radiology Interpretation Completed By: Radiologist Summary of Radiographic Findings: IMPRESSION: 1. Stable postoperative changes of anterior and intervertebral fusion at C5-C6. 2. There is stable multilevel disc height loss, endplate degenerative spurring and uncinate process and facet hypertrophy. 3. No visible acute fracture. 4. There is slight worsening of disc bulge osteophyte complexes at C3-C4 and C4-C5. 5. Slight worsening of mild spinal canal stenosis at C3-C4 and C4-C5. 6. Slight worsening of mild to moderate left C3-C4 and worsening of mild Shoulder Course/Dx - Course Course Of Treatment: She cannot have an MRI due to a lumbar spinal stimulator. She cannot have CT contrast dye due to allergy. Given this, non-contrast CT was ordered to eval c-spine today. Cervical CT results as above. Discussed results with pt. Encouraged to continue to f/u with her pain doctor and her neurologist for further treatment of her cervical radiculopathy. - Differential Dx/Diagnosis Provider Diagnosis: Cervical radiculopathy Discharge ED - Sign-Out/Discharge Documenting (check all that apply): Patient Departure All imaging exams completed and their final reports reviewed: Yes - Discharge Plan Condition: Stable Disposition: HOME Patient Education Materials: Cervical Radiculopathy (ED) Referrals: Marino Cheung MD [Primary Care Provider] - Additional Instructions: If you develop a fever, shortness of breath, chest pain, new or worsening symptoms - please call your PCP or go to the ED immediately. Your blood pressure was high at todays visit. Please see your primary provider within 4 weeks for recheck and re-evaluation. Please continue to follow up with your pain clinic and neurologist for your neck pain and numbness. - Billing Disposition and Condition Condition: STABLE Disposition: Home - Attestation Statements Provider Attestation: Per institutional requirements, I have reviewed the chart, however, I was not consulted specifically or made aware of this patient by the midlevel provider. I did not personally evaluate, interact with , or disposition this patient.
[2019-09-03 20:22] VITALS: BP 145/81
== END 2019-09-03 20:24 | disposition home or self-care (01) ==
LOC: UCEAST 17:44
DX: M54.12 Radiculopathy, cervical region (principal); M48.02 Spinal stenosis, cervical region; Z98.1 Arthrodesis status; I10 Essential (primary) hypertension; Z91.030 Bee allergy status; Z91.09 Other allergy status, other than to drugs and biological substances; Z88.2 Allergy status to sulfonamides; Z91.013 Allergy to seafood; Z88.6 Allergy status to analgesic agent; Z91.040 Latex allergy status; Z91.041 Radiographic dye allergy status; Z88.1 Allergy status to other antibiotic agents
CPT/HCPCS: 72125; 99211; G0463